=== PATIENT | male | born 1985 | race Hispanic/Latino ===

== ENCOUNTER 2017-10-01 21:51 | Emergency (ER) | payer SELFPAY ==
[2017-10-01 21:58] VITALS: RESP 16
--- NOTE | 2017-10-01 22:29 | C.PDOC ---
History Of Present Illness 32 year old male is brought to the ED by EMS after being found on the street unresponsive for evaluation of a possible overdose. 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 Upon arrival patient is alert, awake, oriented he states he used heroin and cocaine today. Patient states he only uses those drugs occasionally, not al the time. Patient denies SI/HI, hallucinations, other physical complaints. Chief Complaint (Nursing): Substance Abuse History Per: Patient, EMS History/Exam Limitations: no limitations Onset/Duration Of Symptoms: Days Current Symptoms Are (Timing): Still Present Modifying Factor(s): Cocaine, Other (Heroin) Associated Symptoms: denies: Depression, Suicidal Thoughts, Suicidal Plan Additional History Per: Patient, EMS Past Medical History Reviewed: Historical Data, Nursing Documentation, Vital Signs Vital Signs: Last Vital Signs Temp 97.8 F 10/01/17 23:18 Pulse 81 10/01/17 23:18 Resp 16 10/01/17 23:18 BP 115/76 10/01/17 23:18 Pulse Ox 95 10/01/17 23:18 - Medical History PMH: No Chronic Diseases Surgical History: No Surg Hx Family History: States: Unknown Family Hx - Social History Hx Alcohol Use: Yes Hx Substance Use: Yes - Immunization History Hx Tetanus Toxoid Vaccination: No Hx Influenza Vaccination: No Hx Pneumococcal Vaccination: No Review Of Systems Constitutional: Negative for: Fever, Chills ENT: Negative for: Ear Pain, Ear Discharge Cardiovascular: Negative for: Chest Pain, Palpitations Respiratory: Negative for: Cough, Shortness of Breath Gastrointestinal: Negative for: Nausea, Vomiting, Abdominal Pain Skin: Negative for: Rash Neurological: Negative for: Weakness, Numbness Physical Exam - Physical Exam Appears: Non-toxic, No Acute Distress Skin: Normal Color, Warm, Dry Head: Atraumatic, Normacephalic Eye(s): bilateral: Normal Inspection Nose: No Discharge, No Deformity Oral Mucosa: Moist Neck: Normal ROM, Supple Chest: Symmetrical Cardiovascular: Rhythm Regular, No Murmur Respiratory: Normal Breath Sounds, No Rales, No Rhonchi, No Wheezing Gastrointestinal/Abdominal: Soft, No Tenderness, No Guarding, No Rebound Extremity: Normal ROM, No Tenderness, No Deformity, No Swelling Neurological/Psych: Oriented x3 ED Course And Treatment O2 Sat by Pulse Oximetry: 96 (On Ra) Pulse Ox Interpretation: Normal Medical Decision Making Medical Decision Making: Impression: substance abuse Plan: * Compazine 10 mg IVP Pt observed for approx 2 hrs after being revived with Narcan.He is safe for discharge Disposition - Disposition Referrals: [facility] [Outside] Disposition: HOME/ ROUTINE Disposition Time: 05:14 Condition: GOOD Instructions: Narcotic Overdose Forms: [employer] (Pashto) Print Language: SOMALI - Clinical Impression Clinical Impression: Drug abuse, Drug abuse and dependence - Scribe Statement The provider has reviewed the documentation as recorded by the Scribe Price Vincent All medical record entries made by the Scribe were at my direction and personally dictated by me. I have reviewed the chart and agree that the record accurately reflects my personal performance of the history, physical exam, medical decision making, and the department course for this patient. I have also personally directed, reviewed, and agree with the discharge instructions and disposition.
[2017-10-01 23:19] VITALS: BP 115/76; PULSE 81; TEMP 97.8
[2017-10-02 05:15] VITALS: O2SAT 96
== END 2017-10-01 23:20 | disposition home or self-care (01) ==
LOC: C.ER 21:51
DX: F19.20 Other psychoactive substance dependence, uncomplicated (principal)
CPT/HCPCS: 96372; 99283; J0780

== ENCOUNTER 2017-11-02 22:41 | Emergency (ER) | payer SELFPAY ==
--- NOTE | 2017-11-02 22:53 | C.PDOC ---
History Of Present Illness 32 year old male is brought to the ED by EMS for evaluation of an heroin overdose. Patient states he [facility], he used 2 bag of heroin today. 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 Patient denies SI/HI, hallucinations, fever, chills, CP, SOB. Time Seen by Provider: 11/02/17 22:53 Chief Complaint (Nursing): Substance Abuse History Per: Patient, EMS History/Exam Limitations: no limitations Onset/Duration Of Symptoms: Days Current Symptoms Are (Timing): Gone Suicide/Self Injury Attempted (Context): Ingestion Modifying Factor(s): Other (Heroin) Associated Symptoms: denies: Depression, Suicidal Thoughts, Suicidal Plan Recent travel outside of the [place]: No Additional History Per: Patient, EMS Past Medical History Reviewed: Historical Data, Nursing Documentation, Vital Signs Vital Signs: Last Vital Signs Temp 98.6 F 11/03/17 00:15 Pulse 88 11/03/17 00:15 Resp 18 11/03/17 00:15 BP 116/78 11/03/17 00:15 Pulse Ox 98 11/03/17 00:15 - Medical History PMH: No Chronic Diseases Surgical History: No Surg Hx Family History: States: Unknown Family Hx - Social History Hx Alcohol Use: Yes Hx Substance Use: Yes - Immunization History Hx Tetanus Toxoid Vaccination: No Hx Influenza Vaccination: No Hx Pneumococcal Vaccination: No Review Of Systems Constitutional: Negative for: Fever, Chills Cardiovascular: Negative for: Chest Pain Respiratory: Negative for: Cough Gastrointestinal: Negative for: Nausea, Vomiting, Abdominal Pain Skin: Negative for: Rash Neurological: Negative for: Weakness, Numbness Physical Exam - Physical Exam Appears: Non-toxic, No Acute Distress Skin: Normal Color, Warm, Dry Head: Atraumatic, Normacephalic Eye(s): bilateral: Normal Inspection Nose: No Discharge Oral Mucosa: Moist Neck: Normal ROM, Supple Chest: Symmetrical Cardiovascular: Rhythm Regular, No Murmur Respiratory: Normal Breath Sounds, No Rales, No Rhonchi, No Wheezing Gastrointestinal/Abdominal: Soft, No Tenderness, No Guarding, No Ascites Extremity: Normal ROM, No Tenderness, No Swelling Neurological/Psych: Oriented x3 Gait: Steady ED Course And Treatment O2 Sat by Pulse Oximetry: 98 (On RA) Pulse Ox Interpretation: Normal Medical Decision Making Medical Decision Making: recurrent intranasal heroine OD 2nd time this month declines detox, referal to psych as opt. Disposition Doctor Will See Patient In The: Office Counseled Patient/Family Regarding: Studies Performed, Diagnosis - Disposition Referrals: [facility] [Outside] [facility] [employer] [facility] [Outside] Disposition: HOME/ ROUTINE Additional Instructions: seek outpatient substance abuse programs as offered Seek Drug Anonymous programs. Seek AA programs. Instructions: Opioid Use Disorder Forms: [facility] (South African) Print Language: MALAY - Clinical Impression Clinical Impression: Heroin abuse - Scribe Statement The provider has reviewed the documentation as recorded by the Scribe Price Vincent All medical record entries made by the Scribe were at my direction and personally dictated by me. I have reviewed the chart and agree that the record accurately reflects my personal performance of the history, physical exam, medical decision making, and the department course for this patient. I have also personally directed, reviewed, and agree with the discharge instructions and disposition.
[2017-11-02 22:54] VITALS: RESP 18
[2017-11-03 00:21] VITALS: BP 116/78; PULSE 88; TEMP 98.6; O2SAT 98
== END 2017-11-03 00:17 | disposition home or self-care (01) ==
LOC: C.ER 22:41
DX: F11.10 Opioid abuse, uncomplicated (principal)

== ENCOUNTER 2017-12-22 22:01 | Emergency (ER) | payer MEDICAID ==
[2017-12-22 22:09] VITALS: BP 101/69; PULSE 89; TEMP 97.8; O2SAT 97
--- NOTE | 2017-12-22 23:33 | C.PDOC ---
History Of Present Illness 32 yo male w/PMhx of substance abuse, homeless, come in for evaluation of dizziness. Pt sts, " feeling dizzy sometimes, mostly when moving". Pt offered c/ o Right eye, B/L arms and legs, multiple complaints. Denies fever chills, vertigo, visual changes, focal deficits, neck pain, CP, dyspnea, palpitation, abd. pain, v/D. Ambulatory in Ed with stable gait, not in any apparent distress. Time Seen by Provider: 12/22/17 23:03 Chief Complaint (Nursing): Medical Clearance History Per: Patient Past Medical History Reviewed: Historical Data, Nursing Documentation, Vital Signs Vital Signs: Last Vital Signs Temp 97.8 F 12/22/17 22:07 Pulse 89 12/22/17 22:07 Resp 20 12/23/17 00:37 BP 101/69 12/22/17 22:07 Pulse Ox 97 12/23/17 00:14 - Medical History PMH: No Chronic Diseases Family History: States: Unknown Family Hx - Social History Hx Tobacco Use: Yes Hx Alcohol Use: Yes Hx Substance Use: Yes - Immunization History Hx Tetanus Toxoid Vaccination: No Hx Influenza Vaccination: No Hx Pneumococcal Vaccination: No Review Of Systems Except As Marked, All Systems Reviewed And Found Negative. Constitutional: Negative for: Fever, Chills ENT: Negative for: Throat Pain Cardiovascular: Negative for: Chest Pain, Palpitations Respiratory: Negative for: Shortness of Breath, Wheezing Gastrointestinal: Negative for: Vomiting, Abdominal Pain, Diarrhea Genitourinary: Negative for: Incontinence Skin: Negative for: Rash Neurological: Negative for: Altered Mental Status Physical Exam - Physical Exam Appears: Well, Non-toxic, No Acute Distress Skin: Normal Color, Warm, Dry, No Rash Head: Atraumatic, Normacephalic Eye(s): bilateral: PERRL Nose: No Flaring, No Discharge Oral Mucosa: Moist, No Drooling Tongue: Normal Appearing Lips: Normal Appearing Throat: No Erythema, No Drooling Neck: Trachea Midline, Supple Cardiovascular: Rhythm Regular, No Murmur, No JVD Respiratory: No Decreased Breath Sounds, No Accessory Muscle Use, No Stridor, No Wheezing Gastrointestinal/Abdominal: Soft, No Tenderness, No Distention, No Guarding, No Rebound Back: No CVA Tenderness, No Vertebral Tenderness, No Paraspinal Tenderness Extremity: Normal ROM, No Pedal Edema, No Deformity, No Swelling Neurological/Psych: Oriented x3, Normal Speech, Normal Motor, Normal Sensation, Normal Reflexes ED Course And Treatment ECG: Interpreted By Me, Viewed By Me ECG Rhythm: Sinus Rhythm Interpretation Of ECG: SR@73/min, NAD, no acute T wave or ST-T changes O2 Sat by Pulse Oximetry: 97 Pulse Ox Interpretation: Normal - Radiology CXR: Interpreted by Me, Viewed By Me CXR Interpretation: Yes: No Acute Disease Progress Note: On re-evlauation, pt is afebrile, hemodynamicaly stable. NOn- toxic. PuslEOx 97 % RA. ENT: no acute findings, uvula midline, no edema. Neck : Supple, (-) JVD, (-) carotid bruits B/L. Lungs: CTA B/L, BS equal B/L. CVS: (+)S1S2, reg. Abd: benign, (-) guaridng, (-) rebound. Neurologicaly intact. EKG, CXR- normal study. FSBS 118. Parent advised. Ref. to Follow up with PMD in 2-3 days for re-eval. return to Ed if any worsening or new changes. Disposition Counseled Patient/Family Regarding: Studies Performed, Diagnosis, Need For Followup - Disposition Referrals: [facility] [Outside] Disposition: HOME/ ROUTINE Disposition Time: 00:13 Condition: STABLE Additional Instructions: Follow up with PMD in 2-3 days for re-evaluation. return if any new changes. Instructions: Dizziness, Nonvertigo, (DC) Forms: [employer] (Lao) - Clinical Impression Clinical Impression: Dizziness
[2017-12-22 23:55] LABS: URINE BILIRUBIN NEGATIVE (NEGATIVE); URINE BLOOD NEGATIVE (NEGATIVE); URINE CLARITY Clear (Clear); URINE COLOR Yellow (YELLOW); URINE GLUCOSE (UA) NORMAL (Normal); URINE LEUKOCYTE ESTERASE NEG Leu/uL (Negative); URINE PROTEIN NEGATIVE (NEGATIVE)
[2017-12-23 00:10] LABS: BARBITURATES, UR NEGATIVE (NEGATIVE); BENZODIAZEPINES, UR NEGATIVE (NEGATIVE); OPIATES, UR NEGATIVE (NEGATIVE); PHENCYCLIDINE, UR NEGATIVE (NEGATIVE)
[2017-12-23 00:37] VITALS: RESP 20
--- NOTE | 2017-12-23 08:27 | RAD ---
HISTORY: Cough COMPARISON: No prior. TECHNIQUE: Chest PA and lateral FINDINGS: LUNGS: No active pulmonary disease. PLEURA: No significant pleural effusion identified. No pneumothorax apparent. CARDIOVASCULAR: Normal. OSSEOUS STRUCTURES: No significant abnormalities. VISUALIZED UPPER ABDOMEN: Normal. OTHER FINDINGS: None. IMPRESSION: No active disease.
--- NOTE | 2017-12-23 22:10 | CARD ---
APPROVED REPORT EKG Measurement Heart [id number] <Conclusion> Normal sinus rhythm Normal ECG
== END 2017-12-23 00:37 | disposition home or self-care (01) ==
LOC: C.ER 22:01
DX: R42 Dizziness and giddiness (principal)